=== PATIENT | female | born 1985 | race Caucasian/White ===

== ENCOUNTER 2016-11-09 16:56 | Emergency (ER) | payer MEDICAID, OTHER ==
[~2016-11-09] VITALS: Ht 152.4 cm; Wt 89.0 kg
[2016-11-09 17:06] VITALS: Ht 152.4 cm; Wt 89.0 kg
[2016-11-09 18:23] LABS: BASOPHIL # 0.1 10^3/ul (0.0-0.1); BASOPHILS % 0.7 % (0.0-2.0); EOSINOPHILS # 0.2 10^3/ul (0.0-0.5); EOSINOPHILS % 1.7 % (0.0-7.0); HEMATOCRIT 39.4 % (37.0-47.0); HEMOGLOBIN 12.8 g/dl (12.0-16.0); LYMPHOCYTES % 20.1 % (15.0-51.0); MEAN CORPUSCULAR HGB CONC 32.5 g/dl (32.0-37.0); MEAN CORPUSCULAR VOLUME 89.3 fl (82.0-101.0); MEAN PLATELET VOLUME 10.2 fl (7.4-10.4); MONOCYTE # 0.7 10^3/ul (0.3-0.9); MONOCYTES % 7.4 % (0.0-11.0); NEUTROPHIL # 6.8 10^3/ul (1.6-7.5); NEUTROPHILS % 69.6 % (39.0-77.0); PLATELET COUNT 252 10^3/UL (140-415); RED BLOOD COUNT 4.41 10^6/ul (4.20-5.40); WHITE BLOOD COUNT 9.8 10^3/ul (4.8-10.8)
[2016-11-09 18:42] LABS: ADD UMIC YES; UR ASCORBIC ACID NEGATIVE (NEGATIVE); UR BACTERIA FEW /HPF (NONE SEEN); UR BILIRUBIN (Dip) NEGATIVE (NEGATIVE); UR BLOOD (Dip) 1+ mg/dL (NEGATIVE); UR CLARITY CLEAR (CLEAR); UR COLOR STRAW (YELLOW); UR GLUCOSE (Dip) NEGATIVE (NEGATIVE); UR KETONES (Dip) NEGATIVE (NEGATIVE); UR LEUKOCYTE ESTERASE (Dip) NEGATIVE Leu/ul (NEGATIVE); UR NITRITE (Dip) NEGATIVE (NEGATIVE); UR RBC 1 /HPF (0-5); UR SPECIFIC GRAVITY (Dip) 1.005 (1.003-1.030); UR TOTAL PROTEIN (Dip) NEGATIVE (NEGATIVE); UR UROBILINOGEN (Dip) NEGATIVE (NEGATIVE)
--- NOTE | 2016-11-09 19:47 | RADRPT ---
PROCEDURE: US OB. CLINICAL INDICATION: Pelvic pain. TECHNIQUE: Transabdominal and transvaginal sonographic evaluation of the pelvis using robles scale an d color Doppler imaging was performed. COMPARISON: CT dated 07/19/2014. FINDINGS: There are 2 separate uterine horns with a normal outer fundal contour and a cleft of myometrium appe ars greater than 1 cm, consistent with a septate uterus. There is a single intrauterine gestation wi th a pole or yolk sac identified within the right uterine horn. The crown-rump length equals 2.2 a cm. The estimated gestational age equals 8 weeks 5 days by ultrasound criteria. Normal cardiac activity is identified with a HR of 176 bpm. No subchorionic hemorrhage is identified. No free fluid or adnexal masses. Right ovary: 3.4 x 2.4 x 3.3 cm. Simple cyst measuring 1.4 cm. Normal flow and echogenicity. Left ovary: 2.5 x 1.8 x 1.4 cm. Normal flow and echogenicity IMPRESSION: 1. Septate uterus with a single viable intrauterine in the right uterine horn with an est imated gestational age of 8 weeks 5 days by ultrasound criteria and an estimated date of delivery of 06/16/2017. RPTAT: HLBP .Eder Ivey MD, Date Time Electronically viewed and signed by .Eder Ivey MD, MD on 11/09/2016 19:47 .P/
--- NOTE | 2016-11-09 19:47 | ERD ---
ER Documentation Chief Complaint Date/Time DATE: 11/09/16 TIME: 19:44 Chief Complaint 10 WEEKS WITH SPOTTING HPI Patient is a 31 year old female who is , approximately 10 weeks With a last normal menstrual period of 09/03/2016. Presents to the ED with mild pelvic pain and vaginal spotting today. States that she went to the bathroom and wiped and had some bleeding. She denies abdominal pain, nausea, vomiting or diarrhea. Denies headache or dizziness. She does have an OB doctor and has an appointment tomorrow unsure of the name of the clinic. No other complaints. ROS All systems reviewed and are negative except as per history of present illness. Allergies Allergies: Coded Allergies: No Known Allergy (Unverified Allergy, Unknown, 01/25/06) PMhx/Soc Medical and Surgical Hx: pt denies Medical Hx, pt denies Surgical Hx Hx Alcohol Use: No Hx Substance Use: No Hx Tobacco Use: No Smoking Status: Never smoker FmHx Family History: No coronary disease, No diabetes, No other Physical Exam Vitals Vital Signs Date Time Temp Pulse Resp B/P Pulse Ox O2 Delivery O2 Flow Rate FiO2 11/09/16 17:06 98.1 78 18 126/75 99 Physical Exam GENERAL: Well-developed, well-nourished female. Appears in no acute distress. HEAD: Normocephalic, atraumatic. EYES: Pupils are equally reactive bilaterally. EOMs grossly intact. No conjunctival erythema. ENT: Moist mucous membranes. No uvula deviation. No kissing tonsils. No exudates. NECK: Supple. No lymphadenopathy or thyromegaly. No meningismus. negative kernig. negative brudinski. LUNG: Clear to auscultation bilaterally. No rhonchi, wheezing, rales or coarse breath sounds. HEART: Regular rate and rhythm. No murmurs, rubs or gallops. ABDOMEN: No scars, ecchymosis or rashes noted. Soft, nontender, and nondistended. Positive bowel sounds in all four quadrants. No rebound tenderness , no guarding. (-) McBurneys point tenderness. No CVA tenderness. BACK: No midline tenderness. Extremities: Equal pulses bilaterally. No peripheral clubbing, cyanosis or edema. No unilateral leg swelling. NEUROLOGIC: Alert and oriented. Moving all four extremities. 5/5 strength in all extremities. Normal speech. Steady gait. SKIN: Normal color. Warm and dry. No rashes or lesions. Capillary refill < 2 seconds Result Diagram: 11/09/16 1810 Results 24 hrs Laboratory Tests Test 11/09/16 18:10 11/09/16 18:15 White Blood Count 9.810^3/ul Red Blood Count 4.4110^6/ul Hemoglobin 12.8g/dl Hematocrit 39.4% Mean Corpuscular Volume 89.3fl Mean Corpuscular Hemoglobin 29.0pg Mean Corpuscular Hemoglobin Concent 32.5g/dl Red Cell Distribution Width 13.0% Platelet Count 09840^3/UL Mean Platelet Volume 10.2fl Neutrophils % 69.6% Lymphocytes % 20.1% Monocytes % 7.4% Eosinophils % 1.7% Basophils % 0.7% Nucleated Red Blood Cells % 0.0/100WBC Neutrophils # 6.810^3/ul Lymphocytes # 2.010^3/ul Monocytes # 0.710^3/ul Eosinophils # 0.210^3/ul Basophils # 0.110^3/ul Nucleated Red Blood Cells # 0.010^3/ul Beta HCG, Quantitative 16596.0mIU/ml Urine Color STRAW Urine Clarity CLEAR Urine pH 6.0 Urine Specific [place] 1.005 Urine Ketones NEGATIVEmg/dL Urine Nitrite NEGATIVEmg/dL Urine Bilirubin NEGATIVEmg/dL Urine Urobilinogen NEGATIVEmg/dL Urine Leukocyte Esterase NEGATIVELeu/ul Urine Microscopic RBC 1/HPF Urine Microscopic WBC 0/HPF Urine Bacteria FEW/HPF Urine Hemoglobin 1+mg/dL Urine Glucose NEGATIVEmg/dL Urine Total Protein NEGATIVEmg/dl Procedures/MDM ER COURSE: I kept the patient and/or family informed of laboratory and diagnostic imaging results throughout the emergency room course. LAB INTERPRETATION: CBC showed no evidence of systemic infection or severe anemia. . UA showed no evidence of leukocytes, nitrites or hematuria. [facility] [place] : o+ Urine MEDICAL DECISION MAKING: This is a 31 year old female who presents with vaginal spotting and pelvic pain. Patient is , 10 weeks . Vital signs were reviewed. Patient is afebrile. Patient is not hypoxic. Ultrasound is read by radiologist shows a septate uterus with a single viable intrauterine in the right uterine horn with an estimated gestational age of 8 weeks 5 days by ultrasound criteria.Low suspicion for ovarian torsion, PID, tuboovarian abscess, ectopic , bowel obstruction, pyelonephritis, UTI, appendicitis, cervicitis, septic , molar , HELLP syndrome, preeclampsia, eclampsia, placenta previa, placenta abruptia.Urinalysis is negative for nitrites, leukocytes. DISCHARGE: At this time, patient is stable for discharge and outpatient management with no new complaints during the ER course. Patient was sent home with Copy of laboratory and imaging studies and follow-up with OB doctor tomorrow. Patient will be discharged home with instructions to recheck for new or worsening symptoms such as fever, nausea, weakness, LOC and to follow up with primary care in the next 1-2 days. Patient was advised to return to the ER for any new or worsening symptoms. Plan was discussed and patient and/or family understands and agrees. Home instructions were given. Departure Diagnosis: Primary Impression: Vaginal spotting Condition: Stable RICHARD DALEY PA-C Nov 09, 2016 19:47
[2016-11-09 20:10] VITALS: BP 118/72; PULSE 71; RESP 16; TEMP 98.3
== END 2016-11-09 20:10 | disposition home or self-care (01) ==
LOC: FTE 16:56
DX: O26.851 Spotting complicating pregnancy, first trimester (principal); R10.2 Pelvic and perineal pain; Z3A.08 8 weeks gestation of pregnancy
CPT/HCPCS: 76801; 81001; 84702; 85025; 86900; 86901; Z7502

== ENCOUNTER 2017-06-03 10:36 | Inpatient (IN) | END 2017-06-06 14:25 | disposition home or self-care (01) | DRG 775 ==